=== PATIENT | female | born 1985 | race Two or more races ===

== ENCOUNTER 2016-06-10 16:39 | Emergency (ER) | payer OTHER ==
--- NOTE | 2016-06-10 18:03 | EDPHY ---
H & P Time Seen by Provider: 06/10/16 17:56 HPI/ROS: CHIEF COMPLAINT: Various complaints, bilateral hand and lip numbness. HISTORY OF PRESENT ILLNESS: The patient is a 31 y/o female arriving with her friend complaining of various complaints after discontinuing her [place] 1 month ago and paresthesias in both hands onset today. She reports she was prescribed [place] for Asperger's syndrome and recently completed a taper from a high dose. She describes increased bowel movements, difficulty with short term memory, and some general fogginess. Today she felt near-syncopal at work and then developed numbness in fingers on both hands that progressed to her lips ; this sensation has since resolved. She is not sure if she was breathing rapidly during symptom onset or not. She denies new or different headaches since symptoms began. REVIEW OF SYSTEMS: Constitutional: No fever, no chills Eyes: No visual changes ENT: No sore throat Respiratory: No cough, no shortness of breath Cardiac: No chest pain Gastrointestinal: No nausea, no vomiting, no abdominal pain Genitourinary: No hematuria, no dysuria Musculoskeletal: No leg pain or swelling Skin: No rash Neurological: see HPI Psychiatric: No depression Past Medical/Surgical History: PMH includes: 1. Asthma 2. Asperger's syndrome Social History: Friend at bedside. PCP: [facility] - EVANGELIST Moore Smoking Status: Never smoked Physical Exam: General Appearance: Alert, no distress Eyes: Pupils equal and round, no conjunctival pallor or injection ENT, Mouth: Mucous membranes moist Neck: Normal inspection Respiratory: Lungs are clear to auscultation Cardiovascular: Regular rate and rhythm Gastrointestinal: Abdomen is soft and non- tender Neurological: A&O, nonfocal, normal gait Skin: Warm and dry, no rash Extremities: Nontender, no pedal edema Psychiatric: Mood and affect normal Constitutional: Initial Vital Signs Temperature (C) 36.5 C 06/10/16 16:48 Heart Rate 83 06/10/16 16:48 Respiratory Rate 18 06/10/16 16:48 Blood Pressure 127/75 H 06/10/16 16:48 O2 Sat (%) 95 06/10/16 16:48 O2 Delivery Mode Room Air Allergies/Adverse Reactions: amoxicillin Allergy (Mild, Verified 06/10/16 16:51) mood swings Home Medications: Medication Instructions Recorded MIRENA 01/09/16 Melatonin 01/09/16 Prozac 01/09/16 Singulair 01/09/16 VYVANSE 01/09/16 Medical Decision Making - Diagnostics EKG Interpretation: EKG interpreted by me reveals normal sinus rhythm, rate 75, no ST or T segment changes. ED Course/Re-evaluation: This patient presents after a near syncopal episode, better after eating. Stat EKG reveals no evidence of ischemia or dysrhythmia. IV normal saline 1 L given. Laboratory tests are normal. Feel that she is safe and stable for discharge. Differential Diagnosis: Differential diagnosis includes though is not limited to cardiac dysrhythmia, CVA, TIA, GI bleed, sepsis, hypoglycemia. - Data Points Laboratory Results: Laboratory Results 06/10/16 18:18 06/10/16 18:18 06/10/16 06/10/16 18:18 18:18 WBC 6.89 10^3/uL 10^3/uL (3.80-9.50) RBC 4.91 10^6/uL 10^6/uL (4.18-5.33) Hgb 13.5 g/dL g/dL (12.6-16.3) Hct 41.0 % % (38.0-47.0) MCV 83.5 fL fL (81.5-99.8) MCH 27.5 pg L pg (27.9-34.1) MCHC 32.9 g/dL g/dL (32.4-36.7) RDW 12.9 % % (11.5-15.2) Plt Count 226 10^3/uL 10^3/uL (150-400) MPV 10.6 fL fL (8.7-11.7) Neut % (Auto) 64.5 % % (39.3-74.2) Lymph % (Auto) 29.8 % % (15.0-45.0) [place] % (Auto) 4.6 % % (4.5-13.0) Eos % (Auto) 0.7 % % (0.6-7.6) Baso % (Auto) 0.3 % % (0.3-1.7) Nucleat RBC Rel Count 0.0 % % (0.0-0.2) Absolute Neuts (auto) 4.44 10^3/uL 10^3/uL (1.70-6.50) Absolute Lymphs (auto) 2.05 10^3/uL 10^3/uL (1.00-3.00) Absolute Monos (auto) 0.32 10^3/uL 10^3/uL (0.30-0.80) Absolute Eos (auto) 0.05 10^3/uL 10^3/uL (0.03-0.40) Absolute Basos (auto) 0.02 10^3/uL 10^3/uL (0.02-0.10) Absolute Nucleated RBC 0.00 10^3/uL 10^3/uL (0-0.01) Immature Gran % 0.1 % % (0.0-1.1) Immature Gran # 0.01 10^3/uL 10^3/uL (0.00-0.10) Sodium 137 mEq/L mEq/L (134-144) Potassium 4.1 mEq/L mEq/L (3.5-5.2) Chloride 100 mEq/L mEq/L (97-110) Carbon Dioxide 28 mEq/l mEq/l (22-31) Anion Gap 9 mEq/L mEq/L (8-16) BUN 13 mg/dL mg/dL (7-23) Creatinine 0.8 mg/dL mg/dL (0.6-1.0) Estimated GFR > 60 Glucose 97 mg/dL mg/dL (70-100) Calcium 9.9 mg/dL mg/dL (8.5-10.4) Medications Given: Discontinued Medications Sodium Chloride (Ns) 1,000 mls @ 0 mls/hr IV ONCE ONE PRN Reason: Wide Open Stop: 06/10/16 18:08 Last Admin: 06/10/16 18:24 Dose: 1,000 mls Departure - Departure Disposition: Home, Routine, Self-Care Clinical Impression: Near syncope Condition: Good Instructions: Near Syncope (ED) Additional Instructions: Follow up with your primary care provider for symptoms unimproved over the next few days. Return to the ED for worsening of condition. Referrals: Felisa Moore PA [Primary Care Provider] - As per Instructions Report Scribed for: Rosario Stone Report Scribed by: Rubina Lomas Date of Report: 06/10/16 Time of Report: 18:03 Physician Review and Approval Statement: 06/10/16 18:03 Portions of this note were transcribed by a medical technologist hematology. I personally performed a history, physical exam, medical decision making, and confirmed accuracy of information the transcribed note.
[2016-06-10] MEDS ORDERED: NS 1,000 ML IV ONE (18:07)
--- NOTE | 2016-06-10 18:40 | CPEKG ---
Heart Rate: 75 RR Interval: 800 P-R Interval: 172 QRSD Interval: 80 QT Interval: 376 QTC Interval: 420 P Spencer: 46 QRS Spencer: 86 T Wave Spencer: 47 EKG Severity - NORMAL ECG - EKG Impression: SINUS RHYTHM Electronically Signed By: Selwyn Mcfarland 11-Jun-2016 12:15:53
[2016-06-10 18:42] VITALS: RESP 16; O2SAT 98
[2016-06-10 18:47] LABS: % IMMATURE GRANULYOCYTES 0.1 % (0.0-1.1); ABSOLUTE IMMATURE GRANULOCYTES 0.01 10^3/uL (0.00-0.10); ADD DIFF? NO; ADD MORPH? NO; ADD SCAN? NO; ATYPICAL LYMPHOCYTE FLAG 20 (0-99); FRAGMENT RBC FLAG 0 (0-99); HEMOGLOBIN 13.5 g/dL (12.6-16.3); LEFT SHIFT FLG 0 (0-99); LIPEMIA HEMOLYSIS FLAG 80 (0-99); MEAN CELL HEMOGLOBIN 27.5 pg (27.9-34.1); MEAN CELL HEMOGLOBIN CONCENTR. 32.9 g/dL (32.4-36.7); MEAN CELL VOLUME 83.5 fL (81.5-99.8); MEAN PLATELET VOLUME 10.6 fL (8.7-11.7); PLATELET CLUMPS FLAG 10 (0-99); PLATELET COUNT 226 10^3/uL (150-400); RED BLOOD CELL COUNT 4.91 10^6/uL (4.18-5.33); RED CELL DISTRIBUTION WIDTH 12.9 % (11.5-15.2)
[2016-06-10 18:55] LABS: ANION GAP 9 mEq/L (8-16); CALCIUM 9.9 mg/dL (8.5-10.4); CARBON DIOXIDE 28 mEq/l (22-31); CHLORIDE 100 mEq/L (97-110); CREATININE 0.8 mg/dL (0.6-1.0); GLOMERULAR FILTRATION RATE > 60; GLUCOSE 97 mg/dL (70-100); POTASSIUM 4.1 mEq/L (3.5-5.2); SODIUM 137 mEq/L (134-144)
[2016-06-10 19:13] VITALS: BP 122/76; PULSE 70; TEMP 96.8
== END 2016-06-10 19:13 | disposition home or self-care (01) ==
DX: R55 Syncope and collapse (principal); J45.909 Unspecified asthma, uncomplicated

== ENCOUNTER 2017-12-19 17:45 | Emergency (ER) | payer OTHER ==
--- NOTE | 2017-12-19 18:56 | EDPHY ---
HPI/HX/ROS/PE/MDM Narrative: CHIEF COMPLAINT:Cough, shortness of breath HPI: The patient is a 32-year-old female with a history of asthma. She was diagnosed with a "sinus infection" within the last month and was placed on doxycycline. Approximately 1 week ago, the patient complained of shortness of breath and cough and went to urgent care. They told her this was likely secondary to a side effect of the doxycycline and not perform further treatment or workup. The patient has been using her inhaler. She denies fever. She complains primarily of persistent dry cough. She denies chest pain or history of blood clot. REVIEW OF SYSTEMS: Aside from elements discussed in the HPI, a comprehensive 10-point review of systems was reviewed and is negative. PMH: Includes asthma. SOCIAL HISTORY: Denies alcohol or drug abuse. PHYSICAL EXAM: General:Patient is alert, in no acute distress. ENT:Eyes are normal to inspection. ENT inspection normal. Neck: Normal inspection. Full range of motion. Respiratory:No respiratory distress. Breath sounds normal bilaterally. No wheeze audible. Frequent cough. The patient speaks in long sentences without apparent difficulty. Cardiovascular: Regular rate and rhythm. Strong peripheral pulses. Normal cap refill. Abdomen:The abdomen is nontender to palpation. There are no peritoneal signs. There are normal bowel sounds. Back: Normal to inspection. No tenderness to palpation. Skin: Normal color. No rash. Warm and dry. Extremities: Normal appearance. Full range of motion. Neuro: Oriented x3. Normal motor function. Normal sensory function. MDM: This is a young healthy female who presents with persistent dry cough in the setting of history of asthma. I considered PE, but the patient primarily complains of cough and sinus pressure and does not appear actually short of breath nor tachycardic. Her only risk factor would be oral contraceptive use. She has been treated with doxycycline within the last few weeks so I do not think that further antibiotic therapy is needed. I think the patient likely is suffering from bronchitis, possibly cough variant asthma, would benefit for short course of steroids. I discussed strict return precautions with the patient. General Time Seen by Provider: 12/19/17 18:24 Initial Vital Signs: Initial Vital Signs Temperature (C) 36.6 C 12/19/17 17:51 Heart Rate 83 12/19/17 17:51 Respiratory Rate 18 12/19/17 17:51 Blood Pressure 107/70 12/19/17 17:51 O2 Sat (%) 97 12/19/17 17:51 O2 Delivery Mode Room Air Allergies/Adverse Reactions: amoxicillin Allergy (Mild, Verified 12/19/17 17:50) mood swings cefdinir Allergy (Verified 12/19/17 17:50) Penicillins Allergy (Verified 12/19/17 17:50) Home Medications: Medication Instructions Recorded MIRENA 01/09/16 Melatonin 01/09/16 Prozac 01/09/16 Singulair 01/09/16 VYVANSE 01/09/16 Albuterol 12/19/17 Claritin 12/19/17 Symbicort 160-4.5 Mcg Inh (*) 12/19/17 predniSONE 40 mg PO DAILY 4 Days tab 12/19/17 Departure - Departure Disposition: Home, Routine, Self-Care Clinical Impression: Acute bronchitis Condition: Good Instructions: Acute Bronchitis (ED) Additional Instructions: Follow-up with your primary doctor within 72 hours. Return to the Emergency Department for fever, chest pain, shortness of breath, increasing pain or other worsening of condition. Referrals: Tiffanie Boyle MD [Primary Care Provider] - As per Instructions Prescriptions: predniSONE 40 mg PO DAILY 4 Days tab
[2017-12-19] MEDS ORDERED: predniSONE 20 MG TAB PO ONE (19:55)
[2017-12-19 20:06] VITALS: BP 101/67
== END 2017-12-19 20:05 | disposition home or self-care (01) ==
DX: J40 Bronchitis, not specified as acute or chronic (principal)
CPT/HCPCS: J7512

== ENCOUNTER 2017-12-21 18:34 | Emergency (ER) | payer OTHER ==
--- NOTE | 2017-12-21 20:03 | EDPHY ---
H & P Stated Complaint: SEEN 12/19 FOR BRONCHITIS STILL FEELING BAD Time Seen by Provider: 12/21/17 20:02 HPI/ROS: HPI: This is a 32-year-old female who presents with Chief Complaint: SEEN 12/19 FOR BRONCHITIS STILL FEELING BAD Location: Chest Quality: Shortness of breath and cough Duration: 2 weeks Signs and Symptoms: no fever, no nausea, no vomiting, no diarrhea, no urinary symptoms, + chest pain, + shortness of breath, no wheezing, + cough, no sore throat, no neck stiffness, no joint pain, no swollen glands, no ear pain, no rash Timing: Acute, worse Severity: Moderate Context: Patient has a history of exercise-induced asthma presents with 2 week history of shortness of breath and dry hacking cough accompanied by chest discomfort with coughing episodes. She was seen in this emergency room on with a negative chest x-ray for pneumonia, effusion, pneumothorax and treated for bronchitis with doxycycline and prednisone burst. She reports no improvement in her symptoms. She travel to [place] recently. No foreign travel. IUD in place. Feels fatigue but no fevers, chills. Reports that she has an appointment with registered pharmacy technician, Dr. Neumann in January. Modifying Factors: See above Comment: ROS: A comprehensive 10 system review of systems is otherwise negative aside from elements mentioned in the history of present illness. MEDICAL/SURGICAL/SOCIAL HISTORY: Medical history: ETOH recovery, exercise-induced asthma, ADHD, depression, left calf surgery Surgical history: Denies Social history: . Nonsmoker. Denies drug use. Family history noncontributory. CONSTITUTIONAL: Nontoxic-appearing, adult female, awake and alert, no obvious distress HEENT: Atraumatic and normocephalic, PERRL, EOMI. Nares patent; no rhinorrhea; no nasal mucosal edema. Tympanic membranes clear. Oropharynx clear, no exudate and moist pink mucosa. Airway patent. No lymphadenopathy. No meningismus. Cardiovascular: Normal S1/S2, regular rate, regular rhythm, without murmur rub or gallop. PULMONARY/CHEST: Symmetrical and nontender. Clear to auscultation bilaterally. Good air movement. No accessory muscle usage. Dry cough noted ABDOMEN: Soft, nondistended, nontender, no rebound, no guarding, no peritoneal signs, no masses or organomegaly. No CVAT. EXTREMITIES: 2/2 pulses, strength 5/5, no deformities, no clubbing, no cyanosis or edema. Negative Homans sign. No palpable cords. NEUROLOGICAL: no focal neuro deficits. GCS 15. SKIN: Warm and dry, no erythema. no rash. Good capillary refill. Source: Patient Exam Limitations: No limitations - Personal History LMP (Females 10-55): IUD In Place Current Tetanus Diphtheria and Acellular Pertussis (TDAP): Yes Tetanus Vaccine Date: < 10 years - Medical/Surgical History Hx Asthma: Yes Hx Chronic Respiratory Disease: No Hx Diabetes: No Hx Cardiac Disease: No Hx Renal Disease: No Hx Cirrhosis: No Hx Alcoholism: Yes Hx HIV/AIDS: No Hx Splenectomy or Spleen Trauma: No Other PMH: ETOH recovery, exercise-induced asthma, ADHD, depression, left calf surgery - Social History Smoking Status: Never smoked Constitutional: Initial Vital Signs Temperature (C) 37.1 C 12/21/17 18:46 Heart Rate 88 12/21/17 18:46 Respiratory Rate 18 12/21/17 18:46 Blood Pressure 111/72 12/21/17 18:46 O2 Sat (%) 96 12/21/17 18:46 O2 Delivery Mode Room Air Allergies/Adverse Reactions: amoxicillin Allergy (Mild, Verified 12/21/17 18:44) mood swings cefdinir Allergy (Verified 12/21/17 18:44) Penicillins Allergy (Verified 12/21/17 18:44) Home Medications: Medication Instructions Recorded MIRENA 01/09/16 Melatonin 01/09/16 Prozac 01/09/16 Singulair 01/09/16 VYVANSE 01/09/16 Albuterol 12/19/17 Claritin 12/19/17 Symbicort 160-4.5 Mcg Inh (*) 12/19/17 predniSONE 40 mg PO DAILY 4 Days tab 12/19/17 Medical Decision Making - Diagnostics Imaging Results: Imaging Impressions Chest/Thorax CTA 12/21/17 21:10 Impression: 1. No definite pulmonary thromboemboli. 2. No acute pulmonary disease. Findings and recommendations discussed with Emergency Department physician, Whitney Arenas at 22:08 hour, 12/21/2017. Final report concurs with initial preliminary interpretation. ED Course/Re-evaluation: Vital signs reviewed and stable upon arrival. Placed on court recording monitor for 3 hr and did not show any arrhythmias, heart block, acute ischemic changes. IV access and laboratory studies ordered including D-dimer. Respiratory pathogen panel ordered Given DuoNeb, IV Solu-Medrol 125 mg and 1 L normal saline 2109: Labs reviewed. No signs of leukocytosis/platelet dysfunction/BRITTNI/ elevated LFTs/electrolyte imbalance/sepsis. Normocytic anemia noted. Elevated D-dimer; CTA chest ordered to evaluate for pulmonary embolism 2199: Called by Radiology, Dr. Dover, who advised that CTA chest shows no PE, bronchitis, pneumonia, pneumothorax, masses, pericardial effusion. Patient will refer to pulmonology outpatient for continued workup. This patient was seen under the supervision of my secondary supervising physician. I evaluated care for this patient independently. Discussed this patient with Dr. Stone. Differential Diagnosis: Shortness of breath including but not limited to pulmonary infectious process, COPD, asthma, pulmonary embolus and congestive heart failure. - Data Points Laboratory Results: Laboratory Results 12/21/17 20:25 12/21/17 20:25 12/21/17 12/21/17 12/21/17 20:25 20:25 20:25 WBC 9.47 10^3/uL 10^3/uL (3.80-9.50) RBC 4.10 10^6/uL L 10^6/uL (4.18-5.33) Hgb 11.6 g/dL L g/dL (12.6-16.3) Hct 34.4 % L % (38.0-47.0) MCV 83.9 fL fL (81.5-99.8) MCH 28.3 pg pg (27.9-34.1) MCHC 33.7 g/dL g/dL (32.4-36.7) RDW 13.2 % % (11.5-15.2) Plt Count 175 10^3/uL 10^3/uL (150-400) MPV 10.8 fL fL (8.7-11.7) Neut % (Auto) 71.2 % % (39.3-74.2) Lymph % (Auto) 23.0 % % (15.0-45.0) [place] % (Auto) 5.3 % % (4.5-13.0) Eos % (Auto) 0.1 % L % (0.6-7.6) Baso % (Auto) 0.2 % L % (0.3-1.7) Nucleat RBC Rel Count 0.0 % % (0.0-0.2) Absolute Neuts (auto) 6.74 10^3/uL H 10^3/uL (1.70-6.50) Absolute Lymphs (auto) 2.18 10^3/uL 10^3/uL (1.00-3.00) Absolute Monos (auto) 0.50 10^3/uL 10^3/uL (0.30-0.80) Absolute Eos (auto) 0.01 10^3/uL L 10^3/uL (0.03-0.40) Absolute Basos (auto) 0.02 10^3/uL 10^3/uL (0.02-0.10) Absolute Nucleated RBC 0.00 10^3/uL 10^3/uL (0-0.01) Immature Gran % 0.2 % % (0.0-1.1) Immature Gran # 0.02 10^3/uL 10^3/uL (0.00-0.10) D-Dimer 1.40 ug/mLFEU H ug/mLFEU (0.00-0.50) VBG Lactic Acid Sodium 137 mEq/L mEq/L (135-145) Potassium 4.1 mEq/L mEq/L (3.3-5.0) Chloride 105 mEq/L mEq/L (97-110) Carbon Dioxide 25 mEq/l mEq/l (22-31) Anion Gap 7 mEq/L mEq/L (6-14) BUN 12 mg/dL mg/dL (7-23) Creatinine 0.7 mg/dL mg/dL (0.6-1.0) Estimated GFR > 60 Glucose 100 mg/dL mg/dL (70-100) Calcium 9.2 mg/dL mg/dL (8.5-10.4) Total Bilirubin 0.5 mg/dL mg/dL (0.1-1.4) Conjugated Bilirubin 0.2 mg/dL mg/dL (0.0-0.5) Unconjugated Bilirubin 0.3 mg/dL mg/dL (0.0-1.1) AST 23 IU/L IU/L (14-46) ALT 19 IU/L IU/L (9-52) Alkaline Phosphatase 52 IU/L IU/L (38-126) Total Protein 7.0 g/dL g/dL (6.3-8.2) Albumin 3.9 g/dL g/dL (3.5-5.0) 12/21/17 20:25 WBC RBC Hgb Hct MCV MCH MCHC RDW Plt Count MPV Neut % (Auto) Lymph % (Auto) [place] % (Auto) Eos % (Auto) Baso % (Auto) Nucleat RBC Rel Count Absolute Neuts (auto) Absolute Lymphs (auto) Absolute Monos (auto) Absolute Eos (auto) Absolute Basos (auto) Absolute Nucleated RBC Immature Gran % Immature Gran # D-Dimer VBG Lactic Acid 0.7 mmol/L mmol/L (0.7-2.1) Sodium Potassium Chloride Carbon Dioxide Anion Gap BUN Creatinine Estimated GFR Glucose Calcium Total Bilirubin Conjugated Bilirubin Unconjugated Bilirubin AST ALT Alkaline Phosphatase Total Protein Albumin Medications Given: Discontinued Medications Albuterol/Ipratropium (Duoneb) 3 ml IH EDNOW ONE Stop: 12/21/17 20:16 Last Admin: 12/21/17 20:35 Dose: 3 ml Sodium Chloride (Ns) 1,000 mls @ 0 mls/hr IV ONCE ONE; Wide Open PRN Reason: Protocol Stop: 12/21/17 20:16 Last Admin: 12/21/17 20:29 Dose: 1,000 mls Methylprednisolone Sodium Succinate (Solu-Medrol) 125 mg IVP EDNOW ONE Stop: 12/21/17 20:16 Last Admin: 12/21/17 20:35 Dose: 125 mg Departure - Departure Disposition: Home, Routine, Self-Care Clinical Impression: Dyspnea Qualifiers: Dyspnea type: unspecified Qualified Code(s): R06.00 - Dyspnea, unspecified Condition: Good Instructions: Dyspnea (ED) Additional Instructions: Please make an appointment with a registered pharmacy technician to be seen in the next 7-10 days. Follow-Up: Please follow-up as noted above. Follow up sooner if your condition worsens or if you develop any new problems Call as soon as possible for an appointment. Be clear when you call for an appointment that this is an Emergency Department follow-up. Contact the Emergency Department if you are having trouble arranging follow up care. Our referrals are not based on your insurance network. When time allows, contact your insurance carrier to verify the referral physician is in your plan. If not, get a referral for an in-network cabler. Please ask us if you have any questions. Referrals: Tiffanie Boyle MD [Primary Care Provider] - As per Instructions Michael Vaca MD [Medical Doctor] - As per Instructions Stand Alone Forms: Work Excuse
[2017-12-21] MEDS ORDERED: NS 1,000 ML IV ONE (20:15)
[2017-12-21] MEDS ORDERED: IPRATROPIUM/ALBUTEROL 3 ML DEYVIAL IH ONE (20:15)
[2017-12-21] MEDS ORDERED: methylPREDNISolone SOD SUCC 125 MG/2 ML VIAL IVP ONE (20:15)
[2017-12-21 20:51] LABS: PLATELET COUNT 175 10^3/uL (150-400)
[2017-12-21] MEDS ORDERED: IOPAMIDOL (ISOVUE 370) 100 ML BTL IV ONE (21:12)
[2017-12-21 22:37] VITALS: BP 109/72
== END 2017-12-21 22:35 | disposition home or self-care (01) ==
DX: R06.00 Dyspnea, unspecified (principal); R05 Cough; E86.9 Volume depletion, unspecified
CPT/HCPCS: 96374; J2930; Q9967

== ENCOUNTER → 2018-03-04 | Outpatient (CLI) | payer OTHER | LOC: BMCIMAGING 15:31 | PROVIDERS: ATTEND Family Medicine | DX: M25.562 Pain in left knee (principal); M79.89 Other specified soft tissue disorders ==

== ENCOUNTER → 2018-06-21 | Outpatient (CLI) | payer OTHER | LOC: BMCIMAGING 12:31 | PROVIDERS: ATTEND Internal Medicine | DX: J45.41 Moderate persistent asthma with (acute) exacerbation (principal) ==